=== PATIENT | female | born 1945 | race Caucasian/White ===

== ENCOUNTER 2024-07-09 06:07 | Inpatient (IN) | payer MEDICARE, OTHER ==
[~2024-07-09] VITALS: Ht 154.9 cm; Wt 95.6 kg
[2024-07-09 06:37] LABS: BASOPHILS % (AUTO) 0.4 % (0.0-2.0); EOSINOPHILS % (AUTO) 1.2 % (1.0-6.0); HEMATOCRIT 27.6 % (36-46); LYMPHOCYTES % (AUTO) 14.1 % (22.0-44.0); MEAN CORPUSCULAR HEMOGLOBIN 31.6 pg (26.0-34.0); MEAN CORPUSCULAR HGB CONC 32.6 G/dL (31.0-37.0); MEAN CORPUSCULAR VOLUME 97 fL (80-100); MONOCYTES # (AUTO) 0.6 K/uL (0.1-1.0); MONOCYTES % (AUTO) 8.6 % (2.0-9.0); NEUTROPHILS # (AUTO) 5.5 K/uL (1.8-7.7); NEUTROPHILS % (AUTO) 75.7 % (40.0-70.0); PLATELET COUNT (AUTO) 208 K/uL (150-450); RED BLOOD CELL COUNT(AUTO) 2.84 MIL/uL (4.00-5.20); RED CELL DISTRIBUTION WIDTH 18.1 % (11.5-14.5); WHITE BLOOD COUNT (AUTO) 7.3 K/uL (4.5-11.0)
[2024-07-09 06:46] LABS: ANION GAP 4 mmol/L (8-16); CALCIUM, TOTAL 9.2 mg/dL (8.8-10.5); CARBON DIOXIDE 35 mmol/L (22-29); CHLORIDE 99 mmol/L (98-107); CREATININE 3.76 mg/dL (0.60-1.30); GLOMERULAR FILTR. RATE CALC 12 mL/min (>60); GLUCOSE,RANDOM 146 mg/dL (70-110); POTASSIUM 4.1 mmol/L (3.5-5.1); SODIUM SERUM 138 mmol/L (136-145); UREA NITROGEN, BLOOD 27 mg/dL (7-18)
[2024-07-09 06:48] LABS: INR 1.4 (0.9-1.1); PROTHROMBIN TIME 14.9 SEC (9.4-11.6)
[2024-07-09 06:52] LABS: ALBUMIN 2.5 g/dL (3.4-5.0); ALKALINE PHOSPHATASE 133 U/L (46-116); ASPARTATE AMINOTRANSFERASE 19 U/L (15-37); BILIRUBIN,TOTAL 0.6 mg/dL (0.1-1.0); TOTAL PROTEIN, SERUM 6.8 g/dL (6.4-8.2)
[2024-07-09 06:54] LABS: LACTIC ACID 1.1 mmol/L (0.4-2.0)
[2024-07-09 06:59] LABS: TROPONIN I-HIGH SENSITIVITY 74 ng/L (<51)
[2024-07-09 07:02] LABS: ALANINE AMINOTRANSFERASE < 6 U/L (12-78)
[2024-07-09 07:12] LABS: SALICYLATE 4.6 mg/dL (2.8-20.0)
[2024-07-09 07:15] LABS: ACETAMINOPHEN < 2 mcg/mL (10-30)
[2024-07-09] MEDS: SODIUM CHLORIDE 0.9% 1,000 ML IV ONE ×2 (07:23→10:00)
[2024-07-09] MEDS: NALOXONE HCL 1 MG/ML 2 ML SYRINGE IVP ONE (08:04)
[2024-07-09 08:43] LABS: ALCOHOL, URINE DRUG SCREEN NEGATIVE (NEGATIVE); AMPHET/METH SCREEN,URINE NEGATIVE (NEGATIVE); BARBITURATE SCREEN, URINE NEGATIVE (NEGATIVE); BENZODIAZEPINES SCREEN,URINE NEGATIVE (NEGATIVE); CANNABINOID SCREEN,URINE NEGATIVE (NEGATIVE); COCAINE SCREEN,URINE NEGATIVE (NEGATIVE); METHADONE SCREEN, URINE NEGATIVE (NEGATIVE); OPIATE SCREEN,URINE NEGATIVE (NEGATIVE); PHENCYCLIDINE SCREEN,URINE NEGATIVE (NEGATIVE)
[2024-07-09] MEDS: DOCUSATE SODIUM 100 MG CAPSULE PO SCH (09:00)
[2024-07-09] MEDS ORDERED: BISACODYL 10 MG RECTAL RECTAL SUPPOSITORY PR PRN (09:00)
[2024-07-09] MEDS: *CLINICAL-MEROPENEM DOSING CLINICAL ONE (09:26)
[2024-07-09] MEDS: PANTOPRAZOLE SODIUM 40 MG/VIAL IVP SCH (09:59)
[2024-07-09 10:41] LABS: GLUCOMETER DEV NAME(LOC) ERT.5; GLUCOSE,POINT OF CARE 128 MG/DL (70-110)
[2024-07-09] MEDS: NOREPINEPHRINE 8 MG/0.9 % NACL 250 ML IV PRN (12:09)
[2024-07-09] MEDS: MEROPENEM 500 MG in SODIUM CHLORIDE 0.9% 50 ML IV SCH (13:40)
[2024-07-09 14:26] LABS: GLUCOMETER DEV NAME(LOC) ERT.5; GLUCOSE,POINT OF CARE 128 MG/DL (70-110)
[2024-07-09] MEDS: HEPARIN SODIUM,PORCINE 5,000 UNITS/ML VIAL SQ SCH (16:02)
[2024-07-09 20:02] LABS: COVID AG,FIA SOURCE NASAL SWAB
[2024-07-09 20:26] LABS: SARS-COV2 (COVID) ANTIGEN,FIA Negative (Negative)
[2024-07-09 20:53] VITALS: BP 92/32; PULSE 74; RESP 20; TEMP 97.4; O2SAT 90
[2024-07-10] VITALS: BP 120/40; PULSE 72; RESP 18; TEMP 97.5; O2SAT 98
[2024-07-10] MEDS ORDERED: NOREPINEPHRINE 8 MG/0.9 % NACL 250 ML IV ONE (00:43)
[2024-07-10] MEDS: ETHYL ALCOHOL 62% ANTISEPTIC NASAL SANITIZER 0.6 ML AMPUL NASAL SCH (00:47)
[2024-07-10] MEDS: NOREPINEPHRINE 8 MG/0.9 % NACL 250 ML IV PRN (00:56)
[2024-07-10] MEDS ORDERED: SODIUM CHLORIDE 0.9% 500 ML IV ONE (01:52)
[2024-07-10 04:00] VITALS: BP 105/45; PULSE 76; RESP 16; TEMP 97.1; O2SAT 99
[2024-07-10 08:00] VITALS: BP 118/39; PULSE 81; RESP 20; TEMP 97.7; O2SAT 97
[2024-07-10 09:21] LABS: BASOPHILS % (AUTO) 0.5 % (0.0-2.0); EOSINOPHILS % (AUTO) 0.8 % (1.0-6.0); HEMATOCRIT 29.4 % (36-46); HEMOGLOBIN 9.2 g/dL (12.0-16.0); LYMPHOCYTES % (AUTO) 11.3 % (22.0-44.0); MEAN CORPUSCULAR HEMOGLOBIN 31.6 pg (26.0-34.0); MEAN CORPUSCULAR HGB CONC 31.2 G/dL (31.0-37.0); MEAN CORPUSCULAR VOLUME 101 fL (80-100); MONOCYTES # (AUTO) 0.8 K/uL (0.1-1.0); MONOCYTES % (AUTO) 9.8 % (2.0-9.0); NEUTROPHILS # (AUTO) 6.6 K/uL (1.8-7.7); NEUTROPHILS % (AUTO) 77.6 % (40.0-70.0); PLATELET COUNT (AUTO) 219 K/uL (150-450); RED CELL DISTRIBUTION WIDTH 19.6 % (11.5-14.5); WHITE BLOOD COUNT (AUTO) 8.5 K/uL (4.5-11.0)
[2024-07-10 09:41] LABS: ALBUMIN 2.3 g/dL (3.4-5.0); BILIRUBIN,TOTAL 0.6 mg/dL (0.1-1.0); CALCIUM, TOTAL 9.1 mg/dL (8.8-10.5); CREATININE 4.66 mg/dL (0.60-1.30); POTASSIUM 4.1 mmol/L (3.5-5.1); TOTAL PROTEIN, SERUM 6.7 g/dL (6.4-8.2)
[2024-07-10 09:45] LABS: RBC MORPHOLOGY COMMENT ABNORMAL RBC MORPH
[2024-07-10] MEDS: ACETAMINOPHEN 325 MG TABLET PO PRN (10:46)
[2024-07-10 11:20] LABS: TROPONIN I-HIGH SENSITIVITY 149 ng/L (<51)
[2024-07-10 12:00] VITALS: BP 106/44; PULSE 78; RESP 21; TEMP 98; O2SAT 81
[2024-07-10] MEDS: FOLIC ACID/VIT B COMPLEX AND C TABLET PO SCH (15:59)
[2024-07-10 16:00] VITALS: BP 95/49; PULSE 85; RESP 21; TEMP 98.1; O2SAT 74
[2024-07-10 20:00] VITALS: BP 103/33; PULSE 85; RESP 27; TEMP 98.4; O2SAT 90
[2024-07-11] VITALS (19 sets, daily range): BP systolic 91–147; BP diastolic 33–80; PULSE 68–82; RESP 16–32; TEMP 97.5–98.9; O2SAT 93–100
[2024-07-11 06:15] LABS: CALCIUM, TOTAL 9.1 mg/dL (8.8-10.5); CREATININE 5.67 mg/dL (0.60-1.30); MAGNESIUM 2.6 mg/dL (1.80-2.40); PHOSPHORUS 7.9 mg/dL (2.5-4.9); POTASSIUM 4.8 mmol/L (3.5-5.1)
[2024-07-11 08:34] LABS: BASOPHILS % (AUTO) 0.2 % (0.0-2.0); EOSINOPHILS % (AUTO) 0 % (1.0-6.0); HEMATOCRIT 28.3 % (36-46); LYMPHOCYTES # (AUTO) 0.9 K/uL (1.0-4.8); LYMPHOCYTES % (AUTO) 6.3 % (22.0-44.0); MEAN CORPUSCULAR HEMOGLOBIN 31.3 pg (26.0-34.0); MEAN CORPUSCULAR HGB CONC 31.9 G/dL (31.0-37.0); MEAN CORPUSCULAR VOLUME 98 fL (80-100); MONOCYTES # (AUTO) 1.5 K/uL (0.1-1.0); MONOCYTES % (AUTO) 10.7 % (2.0-9.0); NEUTROPHILS # (AUTO) 11.3 K/uL (1.8-7.7); NEUTROPHILS % (AUTO) 82.8 % (40.0-70.0); PLATELET COUNT (AUTO) 301 K/uL (150-450); RED BLOOD CELL COUNT(AUTO) 2.89 MIL/uL (4.00-5.20); RED CELL DISTRIBUTION WIDTH 19.4 % (11.5-14.5); WHITE BLOOD COUNT (AUTO) 13.7 K/uL (4.5-11.0)
[2024-07-11] MEDS: EPOETIN ALFA 10,000 UNITS/ML VIAL SQ SCH (08:50)
[2024-07-11 10:07] LABS: THYROID STIMULATING HORMONE 17.7 uIU/mL (0.36-3.74)
[2024-07-11] MEDS: MEROPENEM 500 MG in SODIUM CHLORIDE 0.9% 50 ML IV SCH (11:28)
[2024-07-11 11:45] LABS: TROPONIN I-HIGH SENSITIVITY 121 ng/L (<51)
[2024-07-11] MEDS: LEVOTHYROXINE SODIUM 100 MCG VIAL IVP SCH (12:29)
[2024-07-11] MEDS ORDERED: PHENYLEPHRINE 200 MG/D5%-WATER 250 ML IV PRN (13:00)
[2024-07-11] MEDS: VASOPRESSIN 40 UNITS in DEXTROSE 5%-WATER 98 ML IV PRN (13:08)
[2024-07-11 17:29] LABS: ABG BASE EXCESS -3.4 mmol/L (-2.0-3.0); ABG CARBOXYHEMOGLOBIN 0.7 % (0.0-1.5); ABG HCO3 20.8 mmol/L (22.0-26.0); ABG METHEMOGLOBIN 0.3 % (0.0-1.5); ABG OXYGEN CONTENT 12.2 mL/dL (15.0-23.0); ABG OXYGEN SATURATION 85.2 % (95.0-98.0); ABG OXYHEMOGLOBIN 84.3 % (94.0-100.0); ABG PCO2 73 mmHg (35-45); ABG PH 7.156 (7.35-7.450); ABG TOTAL HEMOGLOBIN 10.3 G/dL (12.0-18.0); ALLEN TEST, BLOOD GAS Positive; PO2, ARTERIAL BG 51.6 mmHg (75.0-83.0); SITE, BLOOD GAS RT RADIAL; SOURCE, BLOOD GAS ARTERIAL; TEMPERATURE, FAHRENHEIT, BG 97.8 FAHREN (96.0-98.6)
[2024-07-11 17:30] LABS: ABG A-A DIFF O2 186.3 mmHg (10-20.0); O2 DEVICE,BLOOD GAS SIMPLE MASK (ROOM AIR)
[2024-07-11 19:51] LABS: ABG BASE EXCESS -6.9 mmol/L (-2.0-3.0); ABG CARBOXYHEMOGLOBIN 0.4 % (0.0-1.5); ABG HCO3 18.8 mmol/L (22.0-26.0); ABG METHEMOGLOBIN 0.3 % (0.0-1.5); ABG OXYGEN CONTENT 13.6 mL/dL (15.0-23.0); ABG OXYGEN SATURATION 98.1 % (95.0-98.0); ABG OXYHEMOGLOBIN 97.4 % (94.0-100.0); ABG PCO2 54 mmHg (35-45); ABG TOTAL HEMOGLOBIN 9.8 G/dL (12.0-18.0); SOURCE, BLOOD GAS ARTERIAL; TEMPERATURE, FAHRENHEIT, BG 98.6 FAHREN (96.0-98.6)
[2024-07-11 19:52] LABS: ABG PH 7.207 (7.35-7.450); ALLEN TEST, BLOOD GAS Positive; O2 DEVICE,BLOOD GAS BIPAP (ROOM AIR); SITE, BLOOD GAS RT BRACHIAL
[2024-07-11] MEDS ORDERED: ETOMIDATE 2 MG/ML 10 ML VIAL ONE (20:58)
[2024-07-11] MEDS: ROCURONIUM BROMIDE 10 MG/ML 5 ML VIAL IVP ONE (21:00)
[2024-07-11] MEDS: ETOMIDATE 2 MG/ML 10 ML VIAL IVP ONE (21:00)
[2024-07-11] MEDS ORDERED: ROCURONIUM BROMIDE 10 MG/ML 5 ML VIAL ONE (21:17)
[2024-07-11] MEDS: CHLORHEXIDINE GLUCONATE 0.12% 15 ML UDCUP ORAL RINSE MM SCH (21:30)
[2024-07-11] MEDS ORDERED: VASOPRESSIN 40 UNITS in DEXTROSE 5%-WATER 98 ML IV PRN (21:45)
[2024-07-11] MEDS: CLINDAMYCIN 600 MG/D5% WATER 50 ML IV ONE (21:56)
[2024-07-11] MEDS: PROPOFOL 1000 MG/ISO-OSM 100 ML IV PRN (22:30)
[2024-07-11 22:59] LABS: ABG BASE EXCESS -7.2 mmol/L (-2.0-3.0); ABG CARBOXYHEMOGLOBIN 0.3 % (0.0-1.5); ABG HCO3 18.9 mmol/L (22.0-26.0); ABG METHEMOGLOBIN 0.3 % (0.0-1.5); ABG OXYGEN CONTENT 13.3 mL/dL (15.0-23.0); ABG OXYGEN SATURATION 96.8 % (95.0-98.0); ABG OXYHEMOGLOBIN 96.2 % (94.0-100.0); ABG PCO2 43 mmHg (35-45); ABG PH 7.279 (7.35-7.450); ABG TOTAL HEMOGLOBIN 9.7 G/dL (12.0-18.0); PO2, ARTERIAL BG 92.3 mmHg (75.0-83.0); SOURCE, BLOOD GAS ARTERIAL; TEMPERATURE, FAHRENHEIT, BG 98.6 FAHREN (96.0-98.6)
[2024-07-11 23:00] LABS: ALLEN TEST, BLOOD GAS Positive; O2 DEVICE,BLOOD GAS VENTILATOR (ROOM AIR); PEEP,BG 5 cm H2O; SITE, BLOOD GAS RT BRACHIAL; VT, ABG 450 ml
[2024-07-12] VITALS (14 sets, daily range): BP systolic 101–153; BP diastolic 35–59; PULSE 54–76; RESP 24; TEMP 97.7–98.3; O2SAT 100
[2024-07-12] MEDS: ROCURONIUM BROMIDE 10 MG/ML 5 ML VIAL IVP ONE (00:59)
[2024-07-12 05:34] LABS: BASOPHILS % (AUTO) 0.2 % (0.0-2.0); HEMATOCRIT 24.1 % (36-46); LYMPHOCYTES # (AUTO) 0.9 K/uL (1.0-4.8); LYMPHOCYTES % (AUTO) 9.7 % (22.0-44.0); MEAN CORPUSCULAR HEMOGLOBIN 31.9 pg (26.0-34.0); MEAN CORPUSCULAR HGB CONC 33.1 G/dL (31.0-37.0); MEAN CORPUSCULAR VOLUME 96 fL (80-100); MONOCYTES # (AUTO) 0.8 K/uL (0.1-1.0); MONOCYTES % (AUTO) 8.2 % (2.0-9.0); NEUTROPHILS # (AUTO) 7.6 K/uL (1.8-7.7); NEUTROPHILS % (AUTO) 80.9 % (40.0-70.0); PLATELET COUNT (AUTO) 229 K/uL (150-450); RED CELL DISTRIBUTION WIDTH 19.1 % (11.5-14.5); WHITE BLOOD COUNT (AUTO) 9.4 K/uL (4.5-11.0)
[2024-07-12 05:41] LABS: CALCIUM, TOTAL 8.6 mg/dL (8.8-10.5); CREATININE 3.4 mg/dL (0.60-1.30); MAGNESIUM 2.1 mg/dL (1.80-2.40); POTASSIUM 3.7 mmol/L (3.5-5.1)
[2024-07-12 09:00] LABS: ABG BASE EXCESS -5.5 mmol/L (-2.0-3.0); ABG CARBOXYHEMOGLOBIN 0.2 % (0.0-1.5); ABG HCO3 20.4 mmol/L (22.0-26.0); ABG METHEMOGLOBIN 0.3 % (0.0-1.5); ABG OXYHEMOGLOBIN 97.5 % (94.0-100.0); ABG PCO2 32 mmHg (35-45); ABG TOTAL HEMOGLOBIN 9.3 G/dL (12.0-18.0); SOURCE, BLOOD GAS ARTERIAL; TEMPERATURE, FAHRENHEIT, BG 97.8 FAHREN (96.0-98.6)
[2024-07-12 09:03] LABS: ALLEN TEST, BLOOD GAS Positive; O2 DEVICE,BLOOD GAS VENTILATOR (ROOM AIR); PEEP,BG 5 cm H2O; SITE, BLOOD GAS RT RADIAL; VT, ABG 450 ml
[2024-07-12] MEDS ORDERED: SODIUM CHLORIDE 0.9% 250 ML IV ONE ×2 (22:34→23:39)
[2024-07-13] VITALS (14 sets, daily range): BP systolic 98–135; BP diastolic 40–58; PULSE 56–85; RESP 24; TEMP 97.8–98.4; O2SAT 98–100
[2024-07-13] MEDS ORDERED: SODIUM CHLORIDE 0.9% 250 ML IV ONE (04:37)
[2024-07-13 05:36] LABS: BASOPHILS % (AUTO) 0.2 % (0.0-2.0); EOSINOPHILS % (AUTO) 2.1 % (1.0-6.0); HEMATOCRIT 25.1 % (36-46); HEMOGLOBIN 8.3 g/dL (12.0-16.0); LYMPHOCYTES # (AUTO) 0.9 K/uL (1.0-4.8); LYMPHOCYTES % (AUTO) 16.1 % (22.0-44.0); MEAN CORPUSCULAR HEMOGLOBIN 31.4 pg (26.0-34.0); MEAN CORPUSCULAR HGB CONC 33.2 G/dL (31.0-37.0); MEAN CORPUSCULAR VOLUME 95 fL (80-100); MONOCYTES # (AUTO) 0.5 K/uL (0.1-1.0); MONOCYTES % (AUTO) 8.7 % (2.0-9.0); NEUTROPHILS # (AUTO) 4.2 K/uL (1.8-7.7); NEUTROPHILS % (AUTO) 72.9 % (40.0-70.0); PLATELET COUNT (AUTO) 218 K/uL (150-450); RED BLOOD CELL COUNT(AUTO) 2.65 MIL/uL (4.00-5.20); RED CELL DISTRIBUTION WIDTH 19.7 % (11.5-14.5); WHITE BLOOD COUNT (AUTO) 5.8 K/uL (4.5-11.0)
[2024-07-13 06:00] LABS: CALCIUM, TOTAL 8.6 mg/dL (8.8-10.5); CREATININE 4.43 mg/dL (0.60-1.30); POTASSIUM 3.6 mmol/L (3.5-5.1)
[2024-07-13] MEDS: FentaNYL CIT 1000MCG/0.9% NACL 100 ML IV PRN (10:54)
[2024-07-13] MEDS: DEXMEDETOMIDINE HCL 400 MCG in SODIUM CHLORIDE 0.9% 96 ML IV PRN (14:12)
[2024-07-13] MEDS ORDERED: INDIUM IN-111 OXYQUINOLINE/.5MCL ISOTOPE 1 EA INJ INJ ONE (15:00)
[2024-07-14] VITALS (24 sets, daily range): BP systolic 74–165; BP diastolic 37–74; PULSE 61–85; RESP 18–25; TEMP 96–98.3; O2SAT 93–100
[2024-07-14 06:06] LABS: BASOPHILS % (AUTO) 0.6 % (0.0-2.0); EOSINOPHILS % (AUTO) 2.2 % (1.0-6.0); HEMATOCRIT 25.7 % (36-46); HEMOGLOBIN 8.4 g/dL (12.0-16.0); LYMPHOCYTES # (AUTO) 0.8 K/uL (1.0-4.8); LYMPHOCYTES % (AUTO) 21.3 % (22.0-44.0); MEAN CORPUSCULAR HEMOGLOBIN 30.9 pg (26.0-34.0); MEAN CORPUSCULAR HGB CONC 32.6 G/dL (31.0-37.0); MEAN CORPUSCULAR VOLUME 95 fL (80-100); MONOCYTES # (AUTO) 0.3 K/uL (0.1-1.0); MONOCYTES % (AUTO) 8.9 % (2.0-9.0); NEUTROPHILS # (AUTO) 2.4 K/uL (1.8-7.7); PLATELET COUNT (AUTO) 204 K/uL (150-450); RED BLOOD CELL COUNT(AUTO) 2.71 MIL/uL (4.00-5.20); RED CELL DISTRIBUTION WIDTH 19.6 % (11.5-14.5); WHITE BLOOD COUNT (AUTO) 3.5 K/uL (4.5-11.0)
[2024-07-14 06:12] LABS: CALCIUM, TOTAL 8.6 mg/dL (8.8-10.5); CREATININE 5.04 mg/dL (0.60-1.30); POTASSIUM 3.7 mmol/L (3.5-5.1)
[2024-07-14] MEDS: MIDODRINE HCL 5 MG TABLET NG SCH (09:07)
[2024-07-14] MEDS ORDERED: ALBUMIN HUMAN 25%-12.5GM/50ML IV BOTTLE IV ONE (16:16)
[2024-07-14] MEDS: MIDODRINE HCL 2.5 MG TABLET PO SCH (21:49)
[2024-07-15] VITALS (10 sets, daily range): BP systolic 101–132; BP diastolic 17–49; PULSE 65–81; RESP 10–28; TEMP 97.7–99; O2SAT 96–100
[2024-07-15] MEDS ORDERED: SODIUM CHLORIDE 0.9% 250 ML IV ONE ×2 (07:04→15:34)
[2024-07-15] MEDS: MIDODRINE HCL 5 MG TABLET NG SCH (08:40)
[2024-07-15 11:16] LABS: ABG CARBOXYHEMOGLOBIN 0.3 % (0.0-1.5); ABG HCO3 22.7 mmol/L (22.0-26.0); ABG METHEMOGLOBIN 0.3 % (0.0-1.5); ABG OXYGEN CONTENT 14.2 mL/dL (15.0-23.0); ABG OXYGEN SATURATION 96.6 % (95.0-98.0); ABG PCO2 46 mmHg (35-45); ABG PH 7.336 (7.35-7.450); ABG TOTAL HEMOGLOBIN 10.4 G/dL (12.0-18.0); PO2, ARTERIAL BG 98.3 mmHg (75.0-83.0); SOURCE, BLOOD GAS ARTERIAL; TEMPERATURE, FAHRENHEIT, BG 98.6 FAHREN (96.0-98.6)
[2024-07-15 11:18] LABS: SITE, BLOOD GAS RT BRACHIAL
[2024-07-15 11:19] LABS: ABG A-A DIFF O2 98.2 mmHg (10-20.0); CPAP, BG 0 cm H2O; O2 DEVICE,BLOOD GAS VENTILATOR (ROOM AIR); PRESSURE SUPPORT, BG 8 cm H2O; SPONTANEOUS VT, BG 380 ml; VENT MODE, BG CPAP (ROOM AIR)
[2024-07-15] MEDS: ONDANSETRON HCL 4 MG/2 ML VIAL IVP PRN (16:25)
[2024-07-16] VITALS (14 sets, daily range): BP systolic 92–148; BP diastolic 25–97; PULSE 57–83; RESP 13–21; TEMP 97.6–98.8; O2SAT 95–100
[2024-07-16 06:20] LABS: BASOPHILS % (AUTO) 0.9 % (0.0-2.0); EOSINOPHILS % (AUTO) 1.9 % (1.0-6.0); HEMATOCRIT 29.1 % (36-46); HEMOGLOBIN 9.6 g/dL (12.0-16.0); MEAN CORPUSCULAR HEMOGLOBIN 31.3 pg (26.0-34.0); MEAN CORPUSCULAR HGB CONC 32.9 G/dL (31.0-37.0); MEAN CORPUSCULAR VOLUME 95 fL (80-100); MONOCYTES # (AUTO) 0.6 K/uL (0.1-1.0); MONOCYTES % (AUTO) 12.2 % (2.0-9.0); NEUTROPHILS # (AUTO) 2.9 K/uL (1.8-7.7); PLATELET COUNT (AUTO) 162 K/uL (150-450); RED BLOOD CELL COUNT(AUTO) 3.05 MIL/uL (4.00-5.20); RED CELL DISTRIBUTION WIDTH 18.8 % (11.5-14.5); WHITE BLOOD COUNT (AUTO) 4.7 K/uL (4.5-11.0)
[2024-07-16 06:33] LABS: CREATININE 4.2 mg/dL (0.60-1.30); MAGNESIUM 2.1 mg/dL (1.80-2.40); PHOSPHORUS 4.5 mg/dL (2.5-4.9)
[2024-07-16 11:20] LABS: SPECIMENTYPE,BODY FLUID THORACENTESIS
[2024-07-16] MEDS: MIDODRINE HCL 5 MG TABLET PO ONE (12:42)
[2024-07-16 13:44] LABS: APPEARANCE,SPUN,BODY FLUID CLEAR (CLEAR); APPEARANCE,UNSPUN,BODY FLUID BLOODY (CLEAR); COLOR,BODY FLUID RED (LT YELLOW)
[2024-07-16 13:45] LABS: TOTAL VOLUME,BODY FLUID 700 mL
[2024-07-16 15:02] LABS: BASOPHILS,BODY FLUID 0 %; EOSINOPHILS,BF (ANAL) 0 %; LYMPHOCYTES,BODY FLUID 87 %; MONOCYTES,BODY FLUID 5 %; NEUTROPHILS,BODY FLUID 8 %; PH, BODY FLUID 7; WBC, BODY FLUID 263 /cu. mm.
[2024-07-17] VITALS (7 sets, daily range): BP systolic 114–131; BP diastolic 41–75; PULSE 75–86; RESP 11–22; TEMP 97.2–98.5; O2SAT 97–100
[2024-07-17 06:50] LABS: CALCIUM, TOTAL 6.4 mg/dL (8.8-10.5); CREATININE 2.81 mg/dL (0.60-1.30); POTASSIUM 4.6 mmol/L (3.5-5.1)
[2024-07-17 13:07] LABS: TOTAL PROTEIN,BODY FLUID,REF 4.1 g/dL
[2024-07-17 15:57] LABS: BASOPHILS % (AUTO) 0.7 % (0.0-2.0); EOSINOPHILS % (AUTO) 1.4 % (1.0-6.0); HEMATOCRIT 28.4 % (36-46); HEMOGLOBIN 9.1 g/dL (12.0-16.0); LYMPHOCYTES # (AUTO) 0.9 K/uL (1.0-4.8); LYMPHOCYTES % (AUTO) 14.8 % (22.0-44.0); MEAN CORPUSCULAR HEMOGLOBIN 30.7 pg (26.0-34.0); MEAN CORPUSCULAR HGB CONC 32.1 G/dL (31.0-37.0); MEAN CORPUSCULAR VOLUME 96 fL (80-100); MONOCYTES # (AUTO) 0.6 K/uL (0.1-1.0); MONOCYTES % (AUTO) 10.3 % (2.0-9.0); NEUTROPHILS # (AUTO) 4.2 K/uL (1.8-7.7); NEUTROPHILS % (AUTO) 72.8 % (40.0-70.0); PLATELET COUNT (AUTO) 154 K/uL (150-450); RED BLOOD CELL COUNT(AUTO) 2.97 MIL/uL (4.00-5.20); RED CELL DISTRIBUTION WIDTH 18.8 % (11.5-14.5); WHITE BLOOD COUNT (AUTO) 5.7 K/uL (4.5-11.0)
[2024-07-18] VITALS (17 sets, daily range): BP systolic 80–143; BP diastolic 27–63; PULSE 63–87; RESP 16–30; TEMP 97.2–98.1; O2SAT 86–100
[2024-07-18 05:49] LABS: BASOPHILS % (AUTO) 0.9 % (0.0-2.0); EOSINOPHILS % (AUTO) 1.9 % (1.0-6.0); HEMATOCRIT 27.1 % (36-46); HEMOGLOBIN 8.9 g/dL (12.0-16.0); LYMPHOCYTES # (AUTO) 0.8 K/uL (1.0-4.8); LYMPHOCYTES % (AUTO) 15.3 % (22.0-44.0); MEAN CORPUSCULAR HEMOGLOBIN 31.5 pg (26.0-34.0); MEAN CORPUSCULAR VOLUME 96 fL (80-100); MONOCYTES # (AUTO) 0.6 K/uL (0.1-1.0); MONOCYTES % (AUTO) 10.6 % (2.0-9.0); NEUTROPHILS # (AUTO) 3.9 K/uL (1.8-7.7); NEUTROPHILS % (AUTO) 71.3 % (40.0-70.0); PLATELET COUNT (AUTO) 157 K/uL (150-450); RED BLOOD CELL COUNT(AUTO) 2.84 MIL/uL (4.00-5.20); WHITE BLOOD COUNT (AUTO) 5.5 K/uL (4.5-11.0)
[2024-07-18 06:03] LABS: ALBUMIN 2.2 g/dL (3.4-5.0); BILIRUBIN,TOTAL 0.7 mg/dL (0.1-1.0); CALCIUM, TOTAL 8.1 mg/dL (8.8-10.5); CREATININE 3.94 mg/dL (0.60-1.30); POTASSIUM 4.1 mmol/L (3.5-5.1); TOTAL PROTEIN, SERUM 6.3 g/dL (6.4-8.2)
[2024-07-18] MEDS ORDERED: SODIUM CHLORIDE 0.9% 2,000 ML ONE (08:46)
[2024-07-18] MEDS: MELATONIN 5 MG TABLET PO PRN (20:33)
[2024-07-19] VITALS (12 sets, daily range): BP systolic 93–145; BP diastolic 28–69; PULSE 67–81; RESP 13–24; TEMP 97.1–98.1; O2SAT 80–100
[2024-07-19 19:53] LABS: ABG BASE EXCESS -1.7 mmol/L (-2.0-3.0); ABG CARBOXYHEMOGLOBIN 1.5 % (0.0-1.5); ABG HCO3 21.9 mmol/L (22.0-26.0); ABG METHEMOGLOBIN 0.3 % (0.0-1.5); ABG OXYGEN CONTENT 9.9 mL/dL (15.0-23.0); ABG OXYHEMOGLOBIN 66.1 % (94.0-100.0); ABG PCO2 60 mmHg (35-45); ABG PH 7.245 (7.35-7.450); ABG TOTAL HEMOGLOBIN 10.7 G/dL (12.0-18.0); SOURCE, BLOOD GAS ARTERIAL; TEMPERATURE, FAHRENHEIT, BG 96.4 FAHREN (96.0-98.6)
[2024-07-19 21:01] LABS: ABG A-A DIFF O2 182.9 mmHg (10-20.0); ABG OXYGEN SATURATION 67.3 % (95.0-98.0); PO2, ARTERIAL BG 34.4 mmHg (75.0-83.0); SITE, BLOOD GAS RT RADIAL
[2024-07-19 21:02] LABS: O2 DEVICE,BLOOD GAS NASAL CANNULA (ROOM AIR)
[2024-07-20] VITALS (19 sets, daily range): BP systolic 102–143; BP diastolic 31–78; PULSE 56–81; RESP 13–25; TEMP 97–98.1; O2SAT 95–100
[2024-07-20] MEDS ORDERED: SODIUM CHLORIDE 0.9% 1,000 ML ONE (04:36)
[2024-07-20] MEDS ORDERED: SODIUM CHLORIDE 0.9% 250 ML IV ONE (04:36)
[2024-07-20 07:41] LABS: ABG BASE EXCESS 2.6 mmol/L (-2.0-3.0); ABG CARBOXYHEMOGLOBIN 0.6 % (0.0-1.5); ABG METHEMOGLOBIN 0.3 % (0.0-1.5); ABG OXYGEN CONTENT 14.5 mL/dL (15.0-23.0); ABG OXYGEN SATURATION 97.8 % (95.0-98.0); ABG OXYHEMOGLOBIN 96.9 % (94.0-100.0); ABG PCO2 57 mmHg (35-45); ABG PH 7.317 (7.35-7.450); ABG TOTAL HEMOGLOBIN 10.5 G/dL (12.0-18.0); SOURCE, BLOOD GAS ARTERIAL; TEMPERATURE, FAHRENHEIT, BG 97.7 FAHREN (96.0-98.6)
[2024-07-20 07:43] LABS: O2 DEVICE,BLOOD GAS BIPAP (ROOM AIR); SITE, BLOOD GAS OTHER
[2024-07-20 07:44] LABS: INSPIRATORY TIME, BG 0.9 SEC; PRESSURE SUPPORT, BG 12 cm H2O; VT, ABG 453 ml
[2024-07-20 08:43] LABS: CALCIUM, TOTAL 8.1 mg/dL (8.8-10.5); CREATININE 1.61 mg/dL (0.60-1.30); POTASSIUM 3.2 mmol/L (3.5-5.1)
[2024-07-20] MEDS ORDERED: SODIUM CHLORIDE 0.9% 500 ML IV ONE (10:32)
[2024-07-20] MEDS: FLUDROCORTISONE ACETATE 0.1 MG TABLET PO SCH (12:21)
[2024-07-20] MEDS: POTASSIUM CHLORIDE 10% 40 MEQ/30 ML LIQUID UDCUP PO ONE (15:49)
[2024-07-20] MEDS: MIDODRINE HCL 5 MG TABLET PO SCH (20:34)
[2024-07-21] VITALS (12 sets, daily range): BP systolic 102–131; BP diastolic 29–61; PULSE 57–82; RESP 17–21; TEMP 97.8–98.2; O2SAT 96–100
[2024-07-21 06:03] LABS: CALCIUM, TOTAL 8.6 mg/dL (8.8-10.5); CREATININE 2.91 mg/dL (0.60-1.30); POTASSIUM 4.1 mmol/L (3.5-5.1)
[2024-07-21] MEDS ORDERED: LIDOCAINE/PF 1% 30 ML VIAL ONE (09:26)
[2024-07-21] MEDS ORDERED: SODIUM BICARBONATE 50 MEQ/50 ML VIAL ONE (09:27)
[2024-07-22] VITALS (13 sets, daily range): BP systolic 92–149; BP diastolic 16–85; PULSE 71–78; RESP 12–22; TEMP 97.5–98.9; O2SAT 98–100
[2024-07-22] MEDS ORDERED: SODIUM CHLORIDE 0.9% 100 ML ONE (03:50)
[2024-07-22 06:09] LABS: CALCIUM, TOTAL 8.7 mg/dL (8.8-10.5); CREATININE 3.94 mg/dL (0.60-1.30); POTASSIUM 4.1 mmol/L (3.5-5.1)
[2024-07-22] MEDS: MIDODRINE HCL 5 MG TABLET PO SCH (16:19)
[2024-07-23] VITALS (15 sets, daily range): BP systolic 94–138; BP diastolic 32–75; PULSE 60–80; RESP 13–22; TEMP 97.6–98.7; O2SAT 99–100
[2024-07-23 05:37] LABS: BASOPHILS % (AUTO) 1.1 % (0.0-2.0); HEMATOCRIT 26.3 % (36-46); HEMOGLOBIN 8.5 g/dL (12.0-16.0); LYMPHOCYTES # (AUTO) 0.9 K/uL (1.0-4.8); LYMPHOCYTES % (AUTO) 18.8 % (22.0-44.0); MEAN CORPUSCULAR HEMOGLOBIN 31.3 pg (26.0-34.0); MEAN CORPUSCULAR HGB CONC 32.3 G/dL (31.0-37.0); MEAN CORPUSCULAR VOLUME 97 fL (80-100); MONOCYTES # (AUTO) 0.6 K/uL (0.1-1.0); MONOCYTES % (AUTO) 11.8 % (2.0-9.0); NEUTROPHILS # (AUTO) 3.4 K/uL (1.8-7.7); NEUTROPHILS % (AUTO) 67.3 % (40.0-70.0); PLATELET COUNT (AUTO) 70 K/uL (150-450); RED BLOOD CELL COUNT(AUTO) 2.71 MIL/uL (4.00-5.20); RED CELL DISTRIBUTION WIDTH 19.9 % (11.5-14.5)
[2024-07-23 05:49] LABS: CALCIUM, TOTAL 8.2 mg/dL (8.8-10.5); CREATININE 2.22 mg/dL (0.60-1.30); POTASSIUM 3.3 mmol/L (3.5-5.1)
[2024-07-23] MEDS: POTASSIUM CHLORIDE 20 MEQ ER TABLET PO ONE (09:16)
[2024-07-23] MEDS ORDERED: SODIUM CHLORIDE 0.9% 250 ML IV ONE (14:14)
[2024-07-24] VITALS (19 sets, daily range): BP systolic 95–120; BP diastolic 33–49; PULSE 60–80; RESP 11–22; TEMP 97.5–98.3; O2SAT 98–100
[2024-07-24 05:58] LABS: BASOPHILS % (AUTO) 1.5 % (0.0-2.0); EOSINOPHILS % (AUTO) 1.6 % (1.0-6.0); HEMATOCRIT 25.4 % (36-46); HEMOGLOBIN 8.4 g/dL (12.0-16.0); LYMPHOCYTES # (AUTO) 1.1 K/uL (1.0-4.8); LYMPHOCYTES % (AUTO) 30.9 % (22.0-44.0); MEAN CORPUSCULAR HEMOGLOBIN 31.8 pg (26.0-34.0); MEAN CORPUSCULAR VOLUME 96 fL (80-100); MONOCYTES # (AUTO) 0.4 K/uL (0.1-1.0); MONOCYTES % (AUTO) 12.1 % (2.0-9.0); NEUTROPHILS % (AUTO) 53.9 % (40.0-70.0); PLATELET COUNT (AUTO) 76 K/uL (150-450); RED BLOOD CELL COUNT(AUTO) 2.63 MIL/uL (4.00-5.20); RED CELL DISTRIBUTION WIDTH 20.2 % (11.5-14.5); WHITE BLOOD COUNT (AUTO) 3.6 K/uL (4.5-11.0)
[2024-07-24 06:09] LABS: CALCIUM, TOTAL 8.7 mg/dL (8.8-10.5); CREATININE 3.22 mg/dL (0.60-1.30); MAGNESIUM 1.8 mg/dL (1.80-2.40); PHOSPHORUS 3.8 mg/dL (2.5-4.9)
[2024-07-24 11:11] LABS: GLUCOMETER DEV NAME(LOC) ICUN.5; GLUCOSE,POINT OF CARE 86 MG/DL (70-110)
[2024-07-24 13:01] LABS: GLUCOMETER DEV NAME(LOC) 5N.2C; GLUCOSE,POINT OF CARE 93 MG/DL (70-110)
[2024-07-24] MEDS ORDERED: SODIUM CHLORIDE 0.9% 500 ML IV ONE ×2 (15:57→17:39)
[2024-07-24 17:51] LABS: GLUCOMETER DEV NAME(LOC) ICU.S6; GLUCOSE,POINT OF CARE 68 MG/DL (70-110)
[2024-07-25 04:19] VITALS: BP 114/37; PULSE 78; RESP 17; TEMP 98.2; O2SAT 100
[2024-07-25 08:04] VITALS: BP 99/47; PULSE 78; RESP 18; TEMP 97.7; O2SAT 99
[2024-07-25 11:21] LABS: BASOPHILS % (AUTO) 1.2 % (0.0-2.0); EOSINOPHILS % (AUTO) 1.6 % (1.0-6.0); HEMATOCRIT 26.5 % (36-46); HEMOGLOBIN 8.7 g/dL (12.0-16.0); LYMPHOCYTES % (AUTO) 21.8 % (22.0-44.0); MEAN CORPUSCULAR HEMOGLOBIN 32.1 pg (26.0-34.0); MEAN CORPUSCULAR HGB CONC 32.8 G/dL (31.0-37.0); MEAN CORPUSCULAR VOLUME 98 fL (80-100); MONOCYTES # (AUTO) 0.5 K/uL (0.1-1.0); MONOCYTES % (AUTO) 10.8 % (2.0-9.0); NEUTROPHILS % (AUTO) 64.6 % (40.0-70.0); PLATELET COUNT (AUTO) 85 K/uL (150-450); RED CELL DISTRIBUTION WIDTH 21.4 % (11.5-14.5); WHITE BLOOD COUNT (AUTO) 4.6 K/uL (4.5-11.0)
[2024-07-25 14:43] VITALS: BP 108/47; PULSE 96; RESP 18; TEMP 97.7; O2SAT 96
[2024-07-25 20:08] VITALS: BP 105/48; PULSE 71; RESP 17; TEMP 98.3; O2SAT 100
[2024-07-25 23:23] VITALS: BP 102/43; PULSE 77; RESP 18; TEMP 98; O2SAT 99
[2024-07-26] VITALS (8 sets, daily range): BP systolic 94–114; BP diastolic 31–47; PULSE 64–77; RESP 18–20; TEMP 97–98.1; O2SAT 97–100
[2024-07-27] VITALS (15 sets, daily range): BP systolic 91–112; BP diastolic 37–59; PULSE 64–81; RESP 18–19; TEMP 97.7–98.2; O2SAT 98–100
[2024-07-27] MEDS: LEVOTHYROXINE SODIUM 25 MCG TABLET PO SCH (05:50)
[2024-07-27] MEDS ORDERED: SODIUM CHLORIDE 0.9% 1,000 ML ONE (08:23)
[2024-07-27] MEDS ORDERED: ALBUMIN HUMAN 25%-12.5GM/50ML IV BOTTLE IV ONE (12:00)
[2024-07-27] MEDS: ALBUMIN HUMAN 25%-12.5GM/50ML 50 ML IV PRN (12:56)
[2024-07-27] MEDS: PANTOPRAZOLE SODIUM 40 MG DR TABLET PO SCH (13:02)
[2024-07-28 01:37] VITALS: BP 107/38; PULSE 75; RESP 19; TEMP 97.8; O2SAT 96
[2024-07-28 04:53] VITALS: BP 113/40; PULSE 74; RESP 18; TEMP 98.4; O2SAT 99
[2024-07-28 07:59] VITALS: BP 104/36; PULSE 67; RESP 18; TEMP 97.8; O2SAT 100
[2024-07-28 11:26] VITALS: BP 138/78; PULSE 66; RESP 19; TEMP 98.2; O2SAT 98
[2024-07-28 15:13] VITALS: BP 116/46; PULSE 69; RESP 18; TEMP 98.2; O2SAT 100
[2024-07-28 20:08] VITALS: BP 120/51; PULSE 62; RESP 18; TEMP 98.2; O2SAT 96
[2024-07-29] VITALS (15 sets, daily range): BP systolic 87–115; BP diastolic 31–79; PULSE 60–82; RESP 17–18; TEMP 96.8–98; O2SAT 98–100
[2024-07-29 09:49] LABS: EOSINOPHILS % (AUTO) 1.5 % (1.0-6.0); HEMATOCRIT 26.3 % (36-46); HEMOGLOBIN 8.5 g/dL (12.0-16.0); LYMPHOCYTES # (AUTO) 0.8 K/uL (1.0-4.8); LYMPHOCYTES % (AUTO) 20.6 % (22.0-44.0); MEAN CORPUSCULAR HEMOGLOBIN 32.3 pg (26.0-34.0); MEAN CORPUSCULAR HGB CONC 32.4 G/dL (31.0-37.0); MEAN CORPUSCULAR VOLUME 100 fL (80-100); MONOCYTES # (AUTO) 0.4 K/uL (0.1-1.0); MONOCYTES % (AUTO) 9.6 % (2.0-9.0); NEUTROPHILS # (AUTO) 2.6 K/uL (1.8-7.7); NEUTROPHILS % (AUTO) 67.3 % (40.0-70.0); PLATELET COUNT (AUTO) 93 K/uL (150-450); RED BLOOD CELL COUNT(AUTO) 2.64 MIL/uL (4.00-5.20); RED CELL DISTRIBUTION WIDTH 22.4 % (11.5-14.5); WHITE BLOOD COUNT (AUTO) 3.9 K/uL (4.5-11.0)
[2024-07-29 09:57] LABS: CALCIUM, TOTAL 8.8 mg/dL (8.8-10.5); CREATININE 3.43 mg/dL (0.60-1.30); POTASSIUM 3.2 mmol/L (3.5-5.1)
[2024-07-29 10:15] LABS: RBC MORPHOLOGY COMMENT ABNORMAL RBC MORPH
[2024-07-29] MEDS: APIXABAN 2.5 MG TABLET PO SCH (12:34)
[2024-07-30 04:11] VITALS: BP 111/34; PULSE 67; RESP 18; TEMP 98; O2SAT 99
[2024-07-30 07:22] VITALS: BP 96/39; PULSE 78; RESP 18; TEMP 97.5; O2SAT 100
[2024-07-30 08:03] LABS: CALCIUM, TOTAL 8.9 mg/dL (8.8-10.5); CREATININE 3.53 mg/dL (0.60-1.30); POTASSIUM 3.4 mmol/L (3.5-5.1)
[2024-07-30 11:11] VITALS: BP 100/34; PULSE 79; RESP 18; TEMP 97.8; O2SAT 97
[2024-07-30] MEDS ORDERED: ALBUMIN HUMAN 25%-12.5GM/50ML IV BOTTLE IV ONE (14:40)
[2024-07-30 15:29] VITALS: BP 108/40; PULSE 77; RESP 20; TEMP 97.8; O2SAT 100
== END 2024-07-30 17:50 | DRG 871 ==
LOC: EMS 06:20 → EDH 09:02 → ICU 20:31 → 5S 07-24 11:00
PROVIDERS: ADMIT Internal Medicine; ATTEND Internal Medicine
PROC: 5A09357 Assistance with Respiratory Ventilation, Less than 24 Consecutive Hours, Continuous Positive Airway Pressure (ICD-10-PCS; 2024-07-11)
PROC: 5A1D70Z Performance of Urinary Filtration, Intermittent, Less than 6 Hours Per Day (ICD-10-PCS; 2024-07-11)
PROC: 5A1945Z Respiratory Ventilation, 24-96 Consecutive Hours (ICD-10-PCS; 2024-07-12)
PROC: 0BH17EZ Insertion of Endotracheal Airway into Trachea, Via Natural or Artificial Opening (ICD-10-PCS; 2024-07-12)
PROC: 05H533Z Insertion of Infusion Device into Right Subclavian Vein, Percutaneous Approach (ICD-10-PCS; 2024-07-12)
PROC: B546ZZA Ultrasonography of Right Subclavian Vein, Guidance (ICD-10-PCS; 2024-07-12)
PROC: 5A09357 Assistance with Respiratory Ventilation, Less than 24 Consecutive Hours, Continuous Positive Airway Pressure (ICD-10-PCS; 2024-07-14)
PROC: 5A1D70Z Performance of Urinary Filtration, Intermittent, Less than 6 Hours Per Day (ICD-10-PCS; 2024-07-14)
PROC: 0W993ZZ Drainage of Right Pleural Cavity, Percutaneous Approach (ICD-10-PCS; principal; 2024-07-16)
PROC: 5A1D70Z Performance of Urinary Filtration, Intermittent, Less than 6 Hours Per Day (ICD-10-PCS; 2024-07-16)
PROC: 5A09357 Assistance with Respiratory Ventilation, Less than 24 Consecutive Hours, Continuous Positive Airway Pressure (ICD-10-PCS; 2024-07-18)
PROC: 5A1D70Z Performance of Urinary Filtration, Intermittent, Less than 6 Hours Per Day (ICD-10-PCS; 2024-07-18)
PROC: 5A09357 Assistance with Respiratory Ventilation, Less than 24 Consecutive Hours, Continuous Positive Airway Pressure (ICD-10-PCS; 2024-07-20)
PROC: 5A1D70Z Performance of Urinary Filtration, Intermittent, Less than 6 Hours Per Day (ICD-10-PCS; 2024-07-20)
PROC: 0W9930Z Drainage of Right Pleural Cavity with Drainage Device, Percutaneous Approach (ICD-10-PCS; 2024-07-21)
PROC: 5A09357 Assistance with Respiratory Ventilation, Less than 24 Consecutive Hours, Continuous Positive Airway Pressure (ICD-10-PCS; 2024-07-21)
PROC: 5A09357 Assistance with Respiratory Ventilation, Less than 24 Consecutive Hours, Continuous Positive Airway Pressure (ICD-10-PCS; 2024-07-22)
PROC: 5A1D70Z Performance of Urinary Filtration, Intermittent, Less than 6 Hours Per Day (ICD-10-PCS; 2024-07-22)
PROC: 5A09357 Assistance with Respiratory Ventilation, Less than 24 Consecutive Hours, Continuous Positive Airway Pressure (ICD-10-PCS; 2024-07-23)
PROC: 5A09357 Assistance with Respiratory Ventilation, Less than 24 Consecutive Hours, Continuous Positive Airway Pressure (ICD-10-PCS; 2024-07-24)
PROC: 5A1D70Z Performance of Urinary Filtration, Intermittent, Less than 6 Hours Per Day (ICD-10-PCS; 2024-07-24)
PROC: 5A1D70Z Performance of Urinary Filtration, Intermittent, Less than 6 Hours Per Day (ICD-10-PCS; 2024-07-27)
PROC: 0WP9X0Z Removal of Drainage Device from Right Pleural Cavity, External Approach (ICD-10-PCS; 2024-07-28)
PROC: 5A1D70Z Performance of Urinary Filtration, Intermittent, Less than 6 Hours Per Day (ICD-10-PCS; 2024-07-29)
DX: A41.9 Sepsis, unspecified organism (principal); G92.8 Other toxic encephalopathy; N18.6 End stage renal disease; R65.21 Severe sepsis with septic shock; J96.01 Acute respiratory failure with hypoxia; J18.9 Pneumonia, unspecified organism; J96.02 Acute respiratory failure with hypercapnia; N17.9 Acute kidney failure, unspecified; J98.11 Atelectasis; N39.0 Urinary tract infection, site not specified; I50.32 Chronic diastolic (congestive) heart failure; I13.2 Hypertensive heart and chronic kidney disease with heart failure and with stage 5 chronic kidney disease, or end stage renal disease; D61.818 Other pancytopenia; E87.29 Other acidosis; F03.918 Unspecified dementia, unspecified severity, with other behavioral disturbance; J91.8 Pleural effusion in other conditions classified elsewhere; F03.90 Unspecified dementia, unspecified severity, without behavioral disturbance, psychotic disturbance, mood disturbance, and anxiety; Z20.822 Contact with and (suspected) exposure to COVID-19; E66.01 Morbid (severe) obesity due to excess calories; Z99.2 Dependence on renal dialysis; D50.9 Iron deficiency anemia, unspecified; D63.1 Anemia in chronic kidney disease; Z68.39 Body mass index [BMI] 39.0-39.9, adult; E11.22 Type 2 diabetes mellitus with diabetic chronic kidney disease; G47.33 Obstructive sleep apnea (adult) (pediatric); D47.2 Monoclonal gammopathy; I27.20 Pulmonary hypertension, unspecified; I48.0 Paroxysmal atrial fibrillation; E03.9 Hypothyroidism, unspecified; E78.5 Hyperlipidemia, unspecified; E87.6 Hypokalemia; G47.00 Insomnia, unspecified; G93.89 Other specified disorders of brain; T40.601A Poisoning by unspecified narcotics, accidental (unintentional), initial encounter; K44.9 Diaphragmatic hernia without obstruction or gangrene; S90.02XA Contusion of left ankle, initial encounter; X58.XXXA Exposure to other specified factors, initial encounter; Y93.89 Activity, other specified; Z95.0 Presence of cardiac pacemaker; Y92.89 Other specified places as the place of occurrence of the external cause; Y99.8 Other external cause status
CPT/HCPCS: 32550; 32555; 36600; 51702; 70450; 71045; 71250; 76942; 78806; 80048; 80053; 80076; 80307; 82140; 82465; 82805; 82945; 82962; 83036; 83605; 83615; 83735; 83986; 84100; 84145; 84157; 84443; 84484; 85025; 85610; 85730; 87015; 87040; 87070; 87075; 87081; 87101; 87186; 87205; 87206; 87340; 87481; 88108; 88305; 89051; 90935; 92526; 92610; 93005; 93306; 93970; 94002; 94003; 94660; 97110; 97163; 97167; 97530; 97535; 99242; 99291; A9547; C9113; G0238; G0480; G0481; J0885; J1644; J2185; J2310; J2370; J2405; J2704; J3010; J3490; J7030; J7040; J7050; J7060; P9047; 36415-L1; 36415-TC